=== PATIENT | male | born 1995 | race Asian ===

== ENCOUNTER 2023-05-31 10:15 | Emergency (ER) | payer BC, OTHER ==
[2023-05-31] MEDS ORDERED: Tetracaine 0.5% PF 4 ML BOT ONE (10:52)
[2023-05-31] MEDS ORDERED: Fluorescein Opthalmic Strip ONE (10:53)
== END 2023-05-31 12:34 | disposition home or self-care (01) ==
LOC: CSHERS 10:15
DX: T20.20XA Burn of second degree of head, face, and neck, unspecified site, initial encounter (principal); T31.0 Burns involving less than 10% of body surface; X58.XXXA Exposure to other specified factors, initial encounter
CPT/HCPCS: 93005